=== PATIENT | female | born 2005 | race Caucasian/White ===

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

== ENCOUNTER 2024-08-22 10:44 | Emergency (ER) | payer MEDICAID ==
[2024-08-22] MEDS: Pantoprazole 40 MG Vial IVPUSH ONE (11:17)
[2024-08-22] MEDS ORDERED: Naloxone 2 MG/2 ML Syringe IVPUSH PRN ×3 (11:17→15:02)
[2024-08-22] MEDS: Ondansetron 4 MG/2 ML SDV IVPUSH ONE ×2 (11:18→15:07)
[2024-08-22] MEDS: Morphine 2 MG/ML SYRINGE IVPUSH ONE ×3 (11:27→15:07)
[2024-08-22] MEDS: Sodium Chloride 0.9% 1,000 ML IV SCH ×2 (11:34→15:44)
[2024-08-22 12:28] LABS: BASOPHILS ABSOLUTE AUTO 0.02 K/uL (0.02-0.10); BASOPHILS PERCENT AUTO 0.2 % (0.0-0.5); EOSINOPHILS ABSOLUTE AUTO 0.16 K/uL (0.04-0.40); EOSINOPHILS PERCENT AUTO 1.8 % (1.0-5.0); HEMATOCRIT 38.1 % (37.0-47.0); HEMOGLOBIN 13.1 g/dL (11.5-16.5); LYMPHOCYTES ABSOLUTE AUTO 1.63 K/uL (1.50-4.00); MEAN CORPUSCULAR HEMOGLOBIN 29.8 pg (27.0-32.0); MEAN CORPUSCULAR HGB CONC 34.4 g/dL (31.0-35.0); MEAN CORPUSCULAR VOLUME 87 fL (76-96); MEAN PLATELET VOLUME 9.7 fL (6.0-10.0); MONOCYTES ABSOLUTE AUTO 0.82 K/uL (0.20-0.80); NEUTROPHILS ABSOLUTE AUTO 6.44 K/uL (2.00-7.50); PLATELET COUNT,PLT 281 K/uL (150-500); RED BLOOD CELL COUNT 4.39 M/uL (3.80-5.80); RED CELL DISTRIBUTION WIDTH 12.7 % (11.0-16.0); WHITE BLOOD CELL COUNT,WBC 9.1 K/uL (4.0-11.0)
[2024-08-22 12:36] LABS: APPEARANCE,URINE TURBID (CLEAR); BILIRUBIN,URINE MODERATE (NEGATIVE); COLOR,URINE OTHER; GLUCOSE,URINE NEGATIVE (NEGATIVE); KETONES,URINE TRACE mg/dL (NEGATIVE); PH,URINE 6.5 (5.0-8.0); PROTEIN,URINE 30 mg/dL (NEGATIVE)
[2024-08-22 12:37] LABS: LEUKOCYTE ESTERASE,URINE NEGATIVE (NEGATIVE); NITRITE,URINE NEGATIVE (NEGATIVE); OCCULT BLOOD,URINE NEGATIVE (NEGATIVE)
[2024-08-22 12:38] LABS: C-REACTIVE PROTEIN 10.3 mg/L (<5.0)
[2024-08-22 12:39] LABS: A/G RATIO 0.9 (0.8-2.0); ALBUMIN 3.8 g/dL (3.4-5.0); ANION GAP 14.6 mmol/L (5.0-15.0); BILIRUBIN TOTAL 3.1 mg/dL (0.0-1.0); CALCIUM 9.2 mg/dL (8.5-10.1); CREATININE 0.78 mg/dL (0.55-1.02); EST CRCL DRUG DOSING (CG) 98.52 mL/min; POTASSIUM,K 3.6 mmol/L (3.5-5.1)
[2024-08-22 12:40] LABS: RBC,URINE 0-5 /HPF; WBC,URINE NOT SEEN /HPF
[2024-08-22 12:41] LABS: AMORPHOUS SEDIMENT,URINE NUMEROUS /HPF; SQUAMOUS EPITHELIAL CELLS,UR FEW /HPF
[2024-08-22] MEDS: Morphine 2 MG/ML SYRINGE IVPUSH PRN (14:11)
[2024-08-22] MEDS: Sodium Chloride 0.9% 10 ML Syringe FLUSH PRN (15:08)
[2024-08-22] MEDS ORDERED: Piperacillin/Tazobactam 3.375 GM in Sodium Chloride 0.9% 100 ML IV SCH (15:15)
[2024-08-22] MEDS: Sodium Chloride 0.9% 50 ML SDV FLUSH SCH (15:20)
[2024-08-22] MEDS: Iopamidol 612 MG/ML 100 ML Bottle IV PRN (15:20)
[2024-08-22] MEDS: Piperacillin/Tazobactam 3.375 GM in Sodium Chloride 0.9% 100 ML IV SCH (15:36)
[2024-08-24 17:22] LABS: HEPATITIS A ANTIBODY, IGM Negative (Negative); HEPATITIS B CORE ANTIBODY, IGM Negative (Negative); HEPATITIS B SURFACE ANTIGEN Negative (Negative); HEPATITIS C AB CIA INTERP Negative (Negative); HEPATITIS C ANTIBODY CIA INDEX 0.07 IV
== END 2024-08-22 17:00 ==
LOC: LB.ED 10:44
DX: E80.6 Other disorders of bilirubin metabolism (principal)
CPT/HCPCS: 36415; 74177; 80053; 80074; 81001; 81025; 83690; 85025; 86140; 87040; 96361; 96365; 96375; 96376; 99285; J2270; J2405; J2470; J2543; J3490; Q9967; 99284